=== PATIENT | female | born 1995 | race African-American/Black ===

== ENCOUNTER 2016-12-21 19:08 | Emergency (ER) | payer OTHER ==
[~2016-12-21] VITALS: Ht 149.9 cm; Wt 45.3 kg
[~2016-12-21 19:08] MED LIST: AMOX400S3 PO; LEVO.1 PO
[2016-12-21 19:24] VITALS: BP 93/54; PULSE 61; RESP 20; TEMP 98.1; O2SAT 99
[2016-12-21] MEDS ORDERED: LEVO.1 PO (19:33)
[2016-12-21] MEDS ORDERED: SODIUM CHLOR 0.9% 1000 ML INJ 1,000 ML IV SCH (19:37)
--- NOTE | 2016-12-21 19:42 | PD ---
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 Patient points to her epigastric area where she is experiencing the pain. According to mom the patient has been complaining of abdominal pain intermittently for the last 2 weeks. No vomiting or diarrhea. No fevers. Patient began to complain of pain earlier this morning and throughout the day today. There does not seem to be an association with eating. Patient is unable to characterize the pain. No history of abdominal surgery. PFSH Past Medical History Diminished Hearing: No Genetic Disorder: Yes Respiratory: Yes (RSV) Immunizations Current: Yes Thyroid Disease: Yes LMP: 12/17/16 Past Surgical History Cardiac Surgery: Yes (TETROLOGY OF FALLOT) Tonsillectomy: Yes (AND ADENOIDS) Tympanostomy Tube: Yes (R EAR) Social History Alcohol Use: No Tobacco Use: No Substance Use: No Allergies-Medications (Allergen,Severity, Reaction): Coded Allergies: Biaxin (Verified Allergy, Mild, RASH, 12/21/16) Reported Meds & Prescriptions Reported Meds & Active Scripts Active Reported Synthroid (Levothyroxine Sodium) 100 Mcg Tab 100 Mcg PO DAILY Review of Systems Except as stated in HPI: all other systems reviewed are Neg Physical Exam Narrative GENERAL: Short stature, well-nourished, comfortable, no acute distress SKIN: Warm and dry. HEAD: Atraumatic. Normocephalic. EYES: Pupils equal and round. No scleral icterus. No injection or drainage. ENT: Mucous membranes pink and moist. NECK: Trachea midline. No JVD. CARDIOVASCULAR: Regular rate and rhythm. No murmur appreciated. RESPIRATORY: No accessory muscle use. Clear to auscultation. Breath sounds equal bilaterally. GASTROINTESTINAL: Abdomen soft, nondistended. Mild epigastric tenderness without rebound or guarding. Rest of her abdomen is very mildly tender. No peritoneal signs. Normal bowel sounds. MUSCULOSKELETAL: No obvious deformities. No clubbing. No cyanosis. No edema. NEUROLOGICAL: Awake and alert. No obvious cranial nerve deficits. Motor grossly within normal limits. Normal speech. Data Data Last Documented VS Vital Signs Date Time Temp Pulse Resp B/P Pulse Ox O2 Delivery O2 Flow Rate FiO2 12/21/16 19:24 98.1 61 20 93/54 99 Orders Beta Hcg (Quant/Titer) (12/21/16 19:37) Complete Blood Count With Diff (12/21/16 19:37) Comprehensive Metabolic Panel (12/21/16 19:37) Lipase (12/21/16 19:37) Prothrombin Time / Inr (Pt) (12/21/16 19:37) Act Partial Throm Time (Ptt) (12/21/16 19:37) Urinalysis - C+S If Indicated (12/21/16 19:37) Ct Abd/Pel W Iv Contrast(Rout) (12/21/16 19:37) Iv Access Insert/Monitor (12/21/16 19:37) Ecg Monitoring (12/21/16 19:37) Oximetry (12/21/16 19:37) Pantoprazole Inj (Protonix Inj) (12/21/16 19:45) Sodium Chlor 0.9% 1000 Ml Inj (Ns 1000 M (12/21/16 19:37) Sodium Chloride 0.9% Flush (Ns Flush) (12/21/16 19:45) Al-Mag Hy-Si 40-40-4 Mg/Ml Liq (Mag-Al P (12/21/16 19:45) Influenzae A/B Antigen (12/21/16 19:37) Diatrizoate Liq ( Gastroview Liq) (12/21/16 19:52) Iohexol 350 Inj (Omnipaque 350 Inj) (12/21/16 21:58) Labs Laboratory Tests Test 12/21/16 12/21/16 20:05 21:15 White Blood Count 4.7 TH/MM3 Red Blood Count 3.78 MIL/MM3 Hemoglobin 13.0 GM/DL Hematocrit 38.1 % Mean Corpuscular Volume 100.9 FL Mean Corpuscular Hemoglobin 34.4 PG Mean Corpuscular Hemoglobin 34.1 % Concent Red Cell Distribution Width 12.6 % Platelet Count 87 TH/MM3 Mean Platelet Volume 11.2 FL Neutrophils (%) (Auto) 62.2 % Lymphocytes (%) (Auto) 24.0 % Monocytes (%) (Auto) 8.6 % Eosinophils (%) (Auto) 0.9 % Basophils (%) (Auto) 4.3 % Neutrophils # (Auto) 3.0 TH/MM3 Lymphocytes # (Auto) 1.1 TH/MM3 Monocytes # (Auto) 0.4 TH/MM3 Eosinophils # (Auto) 0.0 TH/MM3 Basophils # (Auto) 0.2 TH/MM3 CBC Comment AUTO DIFF Differential Comment AUTO DIFF CONFIRMED Platelet Estimate LOW Platelet Morphology Comment ENLARGED Prothrombin Time 12.7 SEC Prothromb Time International 1.1 RATIO Ratio Activated Partial 29.7 SEC Thromboplast Time Sodium Level 142 MEQ/L Potassium Level 4.1 MEQ/L Chloride Level 109 MEQ/L Carbon Dioxide Level 27.1 MEQ/L Anion Gap 6 MEQ/L Blood Urea Nitrogen 9 MG/DL Creatinine 1.00 MG/DL Estimat Glomerular Filtration 83 ML/MIN Rate Random Glucose 85 MG/DL Calcium Level 8.2 MG/DL Total Bilirubin 0.8 MG/DL Aspartate Amino Transf 13 U/L (AST/SGOT) Alanine Aminotransferase 20 U/L (ALT/SGPT) Alkaline Phosphatase 56 U/L Total Protein 7.1 GM/DL Albumin 3.5 GM/DL Lipase 111 U/L Human Chorionic Gonadotropin, LESS THAN 1 Quant MIU/ML Urine Color STRAW Urine Turbidity CLEAR Urine pH 6.5 Urine Specific [place] 1.010 Urine Protein NEG mg/dL Urine Glucose (UA) NEG mg/dL Urine Ketones NEG mg/dL Urine Occult Blood NEG Urine Nitrite NEG Urine Bilirubin NEG Urine Leukocyte Esterase SMALL Urine RBC 0-3 /hpf Urine WBC 3-5 /hpf Urine Squamous Epithelial 6-8 /hpf Cells Urine Bacteria NONE /hpf Microscopic Urinalysis Comment CULT NOT INDICATED MDM Medical Decision Making Medical Screen Exam Complete: Yes Emergency Medical Condition: Yes Medical Record Reviewed: Yes Differential Diagnosis Gastritis, peptic ulcer disease, pancreatitis, hepatobiliary disease, UTI, appendicitis, Narrative Course Vital signs show heart rate 61, blood pressure 93/54, pulse ox 99% on room air, temp of 98.1F. CBC shows WBCs 4.7, hemoglobin 13, hematocrit 38, platelets 87. Chart review shows that the patient has been thrombocytopenic in the past and this is around her baseline. CMP is unremarkable. Lipase is 111. Beta hCG is negative. Influenza is negative. UA shows small leukocyte esterase, 6-8 squamous epithelial cells, not suggestive of UTI. CT abdomen pelvis: CONCLUSION: 1. Mottled appearance of the right lobe of the liver. This is nonspecific. It may simply be secondary to the phase of contrast enhancement. The liver appears otherwise morphologically normal. The IVC appears normal in size. The mottled appearance can be seen within hepatic congestion but again the IVC appears normal in size. 2. Mild amount of fluid in the pelvis. There is a 2 cm cystic area seen in the right adnexa likely related to a right ovarian cyst. 3. Very mild right pleural effusion. The patient and the patient's mom were made aware of all findings, and the patient's mom was given a copy of the CT abdomen pelvis report. The patient is resting comfortably. She was given a GI cocktail, IV Protonix. Her abdominal exam shows some mild epigastric tenderness without peritoneal signs. Respiratory abdomen is nontender. Her abdomen is very soft. At this point I believe she is stable for discharge home with outpatient follow-up. The patient 's mom reports that the patient has been out of her Synthroid 100 g daily for the last 2-3 days. She usually has this prescription refilled by her maintenance operator Dr. Acevedo, however she has been out of town. Patient does not actually have a primary care physician with that she can follow-up with his mom is been trying to find one for her. I will refill her Synthroid here in the emergency department was started on Protonix. Mom informed on when to return to the emergency department. She verbalizes understanding and agreement with plan. Diagnosis Primary Impression: Epigastric abdominal pain Additional Impression: Adnexal cyst Referrals: Primary Care Physician 3 days Additional Instructions: Follow-up with a primary care physician this week. Return to the emergency department for worsening symptoms or any other concerns. Scripts Pantoprazole (Protonix)40 Mg Tab40 Mg PO DAILY #30 TAB Ref 0 Prov:Guru Bruno MD 12/21/16 Levothyroxine 100 Mcg Cry874 Mcg PO DAILY #30 TAB Ref 0 Prov:Guru Bruno MD 12/21/16 Disposition: 01 DISCHARGE HOME Condition: Stable Guru Bruno MD Dec 21, 2016 19:42
[2016-12-21] MEDS ORDERED: PANTOPRAZOLE SODIUM 40 MG VIAL IVP ONE (19:45)
[2016-12-21] MEDS ORDERED: ALUMINUM/MAGNESIUM/SIMETH 30 ML CUP PO ONE (19:45)
[2016-12-21] MEDS ORDERED: SODIUM CHLORIDE 0.9% FLUSH 5 ML FLUSH IVF PRN (19:45)
[2016-12-21] MEDS ORDERED: DIATRIZOATE MEGLUM/DIATRIZOATE SOD 9 ML CUP ONE (19:52)
[2016-12-21 20:20] LABS: BASOPHIL # 0.2 TH/MM3 (0-0.2); BASOPHIL % 4.3 % (0.0-2.0); EOSINOPHIL % 0.9 % (0.0-4.0); HEMATOCRIT 38.1 % (35.0-46.0); LYMPHOCYTE # 1.1 TH/MM3 (1.0-4.8); MEAN CELL VOLUME 100.9 FL (80.0-100.0); MEAN CORPUSCULAR HEMOGLOBIN 34.4 PG (27.0-34.0); MEAN CORPUSCULAR HGB CONC 34.1 % (32.0-36.0); MONO % 8.6 % (0.0-8.0); NEUT % 62.2 % (16.0-70.0); PLATELET COUNT 87 TH/MM3 (150-450); RED BLOOD COUNT 3.78 MIL/MM3 (4.00-5.30); RED CELL DISTRIBUTION WIDTH 12.6 % (11.6-17.2); WHITE BLOOD COUNT 4.7 TH/MM3 (4.0-11.0)
[2016-12-21 20:24] LABS: HEMO FLAGS AUTO DIFF
[2016-12-21 20:27] LABS: CHLORIDE 109 MEQ/L (98-107); POTASSIUM 4.1 MEQ/L (3.5-5.1); SODIUM (NA) 142 MEQ/L (136-145)
[2016-12-21 20:33] LABS: ANION GAP 6 MEQ/L (5-15); APTT (PATIENT) 29.7 SEC (24.3-30.1); BICARBONATE 27.1 MEQ/L (21.0-32.0); BLOOD UREA NITROGEN 9 MG/DL (7-18); INTERNATIONAL NORMALIZED RATIO 1.1 RATIO; PROTHROMBIN TIME - PATIENT 12.7 SEC (9.8-11.6)
[2016-12-21 20:35] LABS: ALT (GPT) 20 U/L (10-53); AST (GOT) 13 U/L (15-37); GLOMERULAR FILTRATION RATE 83 ML/MIN (>89)
[2016-12-21 20:36] LABS: TOTAL BILIRUBIN ADULT 0.8 MG/DL (0.2-1.0)
[2016-12-21 20:37] LABS: ALKALINE PHOSPHATASE 56 U/L (45-117)
[2016-12-21 20:38] LABS: BETA HCG QUANT LESS THAN 1 MIU/ML (0-5)
[2016-12-21 20:44] LABS: PLATELET ESTIMATE SMEAR LOW (NORMAL); PLATELET MORPHOLOGY ENLARGED (NORMAL); SCAN/DIFF AUTO DIFF CONFIRMED
[2016-12-21 21:28] LABS: BLOOD, URINE NEG (NEG); GLUCOSE,URINE NEG (NEG); KETONE, URINE NEG (NEG); NITRITE,URINE NEG (NEG); PH, URINE 6.5 (5.0-8.5)
[2016-12-21 21:38] LABS: RBC, URINE 0-3 /hpf (0-3); URINE COLOR STRAW (YELLW/STRAW)
[2016-12-21 21:39] LABS: COMMENT (UR) CULT NOT INDICATED; CULTURE IF INDICATED CULT NOT INDICATED
[2016-12-21] MEDS ORDERED: IOHEXOL 350 MG/ML 10 ML VIAL (for RAD DIAG) IV ONE (21:58)
--- NOTE | 2016-12-21 22:16 | RADHPO ---
EXAM DATE/TIME: 12/21/2016 21:39 [facility] COMPARISON: No previous studies available for comparison. INDICATIONS : Epigastric pain. IV CONTRAST: 75 cc Omnipaque 350 (iohexol) IV ORAL CONTRAST: Prescribed oral contrast ingested. RADIATION DOSE: 4.71 CTDIvol (mGy) MEDICAL HISTORY : Cardiovascular disease. SURGICAL HISTORY : Open heart surgery. ENCOUNTER: Initial ACUITY: 2 weeks PAIN SCALE: 10/10 LOCATION: Midline epigastric. TECHNIQUE: Volumetric scanning of the abdomen and pelvis was performed. Using automated exposure control and adjustment of the mA and/or kV according to patient size, radiation dose was kept as low as reasonably achievable to obtain optimal diagnostic quality images. FINDINGS: The liver has a somewhat mottled appearance in the right lobe. This could be secondary to the phase of contrast enhancement. The hepatic vein appears normal. The liver morphology appear s normal. No focal splenic mass is seen. The spleen, pancreas, adrenal glands and kidneys appear no rmal. The aorta and IVC appear normal. There is a mild amount of free fluid seen in the pelvis. The re is a 2 cm cystic area seen in the right adnexal likely related to a right ovarian cyst. The bowel is unremarkable. There is a very mild right pleural effusion. The lung bases are grossly clear. The bony structures a re intact. CONCLUSION: 1. Mottled appearance of the right lobe of the liver. This is nonspecific. It may simply be seconda ry to the phase of contrast enhancement. The liver appears otherwise morphologically normal. The IV C appears normal in size. The mottled appearance can be seen within hepatic congestion but again the IVC appears normal in size. 2. Mild amount of fluid in the pelvis. There is a 2 cm cystic area seen in the right adnexa likely r elated to a right ovarian cyst. 3. Very mild right pleural effusion. Tex Dominique MD on December 21, 2016 at 21:59 Board Certified Radiologist. This report was verified electronically.
[2016-12-21] MEDS ORDERED: PROT40TA PO (22:28)
[2016-12-21] MEDS ORDERED: LEVO100T5 PO (22:28)
[2016-12-21 22:43] VITALS: BP 99/63; PULSE 64; RESP 16; O2SAT 99
[2017-03-14] MEDS ORDERED: LEVO100T5 PO (14:08)
[2017-03-21] MEDS ORDERED: ERGO1CAP30 PO (11:44)
[2017-03-21] MEDS ORDERED: LEVO125T4 PO (11:44)
[2017-03-28] MEDS ORDERED: VITA20004 PO (15:06)
== END 2016-12-21 22:48 | disposition home or self-care (01) ==
LOC: PHED 19:08
DX: R10.13 Epigastric pain (principal); N83.201 Unspecified ovarian cyst, right side; Q90.9 Down syndrome, unspecified; E03.9 Hypothyroidism, unspecified
CPT/HCPCS: 74177; 80053; 81001; 83690; 84702; 85025; 85610; 85730; 87804; 96361; 96374; 99284; C9113; J7030; Q9963; Q9967